=== PATIENT | male | born 1965 | race Caucasian/White ===

== ENCOUNTER → 2018-04-28 | Outpatient (CLI) | payer OTHER ==
[~2018-04-28] MED LIST: CEFTIN250 MG PO; CHROMIUM PICO200 MCG PO; COUMADIN 5MG5 MG/TAB PO; DIABETIC PO; GLUCOPHAGE; L-CARNITINE PO; LOVENOX 8080 MG/0.8 SQ; VICODIN 5/5001 UDTAB PO; VITAMIN E1000 IU PO; [UNRECOGNIZED DRUG - REMARK]
== END ==
LOC: BHSO 13:41
DX: F51.5 Nightmare disorder (principal)

== ENCOUNTER → 2018-05-06 | Outpatient (REF) | LOC: ZLAB.WCH 15:11 | DX: Z01.89 Encounter for other specified special examinations (principal) ==

== ENCOUNTER → 2018-05-18 | Outpatient (REF) | LOC: ZLAB.WCH 19:08 | DX: Z01.89 Encounter for other specified special examinations (principal) ==

== ENCOUNTER → 2018-05-20 | Outpatient (REF) | LOC: ZLAB.WCH 08:35 | DX: Z01.89 Encounter for other specified special examinations (principal) ==

== ENCOUNTER → 2018-05-24 | Outpatient (REF) | LOC: ZLAB.WCH 08:57 | DX: Z01.89 Encounter for other specified special examinations (principal) ==

== ENCOUNTER → 2018-05-25 | Outpatient (CLI) | payer OTHER | LOC: BHSO 09:50 | DX: F51.5 Nightmare disorder (principal) ==

== ENCOUNTER → 2018-06-08 | Outpatient (CLI) | payer OTHER | LOC: BHSO 09:48 | DX: F51.5 Nightmare disorder (principal) ==

== ENCOUNTER → 2018-06-15 | Outpatient (CLI) | payer OTHER | LOC: BHSO 09:56 | DX: F51.5 Nightmare disorder (principal) ==

== ENCOUNTER → 2018-06-22 | Outpatient (CLI) | payer OTHER | LOC: BHSO 10:01 | DX: F51.5 Nightmare disorder (principal) ==

== ENCOUNTER → 2018-06-29 | Outpatient (CLI) | payer OTHER | LOC: BHSO 09:53 | DX: F51.5 Nightmare disorder (principal) ==

== ENCOUNTER → 2018-07-09 | Outpatient (CLI) | payer OTHER | LOC: BHSO 12:05 | DX: F51.5 Nightmare disorder (principal) ==

== ENCOUNTER → 2018-07-13 | Outpatient (CLI) | payer OTHER | LOC: BHSO 09:51 | DX: F51.5 Nightmare disorder (principal) ==

== ENCOUNTER → 2018-07-20 | Outpatient (CLI) | payer OTHER | LOC: BHSO 08:55 | DX: F51.5 Nightmare disorder (principal) ==

== ENCOUNTER → 2018-07-27 | Outpatient (CLI) | payer OTHER | LOC: BHSO 10:00 | DX: F51.4 Sleep terrors [night terrors] (principal) ==

== ENCOUNTER → 2018-08-03 | Outpatient (CLI) | payer OTHER | LOC: BHSO 10:11 | DX: F51.5 Nightmare disorder (principal) ==

== ENCOUNTER → 2018-08-05 | Outpatient (REF) | LOC: ZLAB.WCH 16:17 | DX: Z01.89 Encounter for other specified special examinations (principal) ==

== ENCOUNTER → 2018-08-10 | Outpatient (CLI) | payer OTHER | LOC: BHSO 09:53 | DX: F63.81 Intermittent explosive disorder (principal) ==

== ENCOUNTER → 2018-08-17 | Outpatient (CLI) | payer OTHER | LOC: BHSO 09:57 | DX: F63.81 Intermittent explosive disorder (principal) ==

== ENCOUNTER → 2018-08-25 | Outpatient (CLI) | payer OTHER | LOC: COL.RAD 09:47 | DX: Z02.71 Encounter for disability determination (principal); I70.202 Unspecified atherosclerosis of native arteries of extremities, left leg; M47.816 Spondylosis without myelopathy or radiculopathy, lumbar region; I70.0 Atherosclerosis of aorta; I70.8 Atherosclerosis of other arteries ==

== ENCOUNTER → 2018-08-31 | Outpatient (CLI) | payer OTHER | LOC: BHSO 12:58 | DX: F63.81 Intermittent explosive disorder (principal) ==

== ENCOUNTER → 2018-09-07 | Outpatient (CLI) | payer OTHER | LOC: BHSO 09:50 | DX: F63.81 Intermittent explosive disorder (principal) ==

== ENCOUNTER → 2018-09-14 | Outpatient (CLI) | payer OTHER | LOC: BHSO 09:54 | DX: F63.81 Intermittent explosive disorder (principal) ==

== ENCOUNTER → 2018-09-21 | Outpatient (CLI) | payer OTHER | LOC: BHSO 09:57 | DX: F63.81 Intermittent explosive disorder (principal) ==

== ENCOUNTER → 2018-09-28 | Outpatient (CLI) | payer OTHER | LOC: BHSO 10:01 | DX: F63.81 Intermittent explosive disorder (principal) ==

== ENCOUNTER → 2018-10-06 | Outpatient (CLI) | payer OTHER | LOC: BHSO 15:20 | DX: F63.81 Intermittent explosive disorder (principal) ==

== ENCOUNTER → 2018-10-12 | Outpatient (CLI) | payer OTHER | LOC: BHSO 09:50 | DX: F63.81 Intermittent explosive disorder (principal) ==

== ENCOUNTER → 2018-10-19 | Outpatient (CLI) | payer OTHER | LOC: BHSO 09:56 | DX: F63.81 Intermittent explosive disorder (principal) ==

== ENCOUNTER → 2018-10-26 | Outpatient (CLI) | payer OTHER | LOC: BHSO 09:55 | DX: F63.81 Intermittent explosive disorder (principal) ==

== ENCOUNTER → 2018-11-02 | Outpatient (CLI) | payer OTHER | LOC: BHSO 09:57 | DX: F63.81 Intermittent explosive disorder (principal) ==

== ENCOUNTER → 2018-11-23 | Outpatient (CLI) | payer OTHER | LOC: BHSO 09:44 | DX: F63.81 Intermittent explosive disorder (principal) ==

== ENCOUNTER → 2018-11-30 | Outpatient (CLI) | payer OTHER | LOC: BHSO 10:53 | DX: F63.81 Intermittent explosive disorder (principal) ==

== ENCOUNTER → 2018-12-07 | Outpatient (CLI) | payer OTHER | LOC: BHSO 09:46 | DX: F63.81 Intermittent explosive disorder (principal) ==

== ENCOUNTER → 2018-12-21 | Outpatient (CLI) | payer OTHER | LOC: BHSO 10:17 | DX: F63.81 Intermittent explosive disorder (principal) ==

== ENCOUNTER → 2018-12-28 | Outpatient (CLI) | payer OTHER | LOC: BHSO 10:47 | DX: F63.81 Intermittent explosive disorder (principal) ==

== ENCOUNTER → 2019-01-04 | Outpatient (CLI) | payer OTHER | LOC: BHSO 10:46 | DX: F63.81 Intermittent explosive disorder (principal) ==

== ENCOUNTER → 2019-01-13 | Outpatient (CLI) | payer OTHER | LOC: BHSO 12:54 | DX: F63.81 Intermittent explosive disorder (principal) ==

== ENCOUNTER → 2019-01-18 | Outpatient (CLI) | payer OTHER | LOC: BHSO 10:55 | DX: F63.81 Intermittent explosive disorder (principal) ==

== ENCOUNTER → 2019-01-25 | Outpatient (CLI) | payer OTHER | LOC: BHSO 10:54 | DX: F63.81 Intermittent explosive disorder (principal) ==

== ENCOUNTER → 2019-02-01 | Outpatient (CLI) | payer OTHER | LOC: BHSO 10:55 | DX: F63.81 Intermittent explosive disorder (principal) ==

== ENCOUNTER → 2019-02-08 | Outpatient (CLI) | payer OTHER | LOC: BHSO 10:49 | DX: F63.81 Intermittent explosive disorder (principal) ==

== ENCOUNTER → 2019-02-15 | Outpatient (CLI) | payer OTHER | LOC: BHSO 10:55 | DX: F63.81 Intermittent explosive disorder (principal) ==

== ENCOUNTER → 2019-02-22 | Outpatient (CLI) | payer OTHER | LOC: BHSO 09:54 | DX: F63.81 Intermittent explosive disorder (principal) ==

== ENCOUNTER → 2019-03-01 | Outpatient (CLI) | payer OTHER | LOC: BHSO 10:50 | DX: F63.81 Intermittent explosive disorder (principal) ==

== ENCOUNTER → 2019-03-08 | Outpatient (CLI) | payer OTHER | LOC: BHSO 10:53 | DX: F63.81 Intermittent explosive disorder (principal) ==

== ENCOUNTER → 2019-03-16 | Outpatient (CLI) | payer OTHER | LOC: BHSO 10:56 | DX: F63.81 Intermittent explosive disorder (principal) ==

== ENCOUNTER → 2019-03-22 | Outpatient (CLI) | payer OTHER | LOC: BHSO 10:54 | DX: F63.81 Intermittent explosive disorder (principal) ==

== ENCOUNTER → 2019-03-29 | Outpatient (CLI) | payer OTHER | LOC: BHSO 11:01 | DX: F41.1 Generalized anxiety disorder (principal) ==

== ENCOUNTER → 2019-04-05 | Outpatient (CLI) | payer OTHER | LOC: BHSO 11:08 | DX: F63.81 Intermittent explosive disorder (principal) ==

== ENCOUNTER → 2019-04-12 | Outpatient (CLI) | payer OTHER | LOC: BHSO 10:55 | DX: F63.81 Intermittent explosive disorder (principal) ==

== ENCOUNTER → 2019-05-17 | Outpatient (CLI) | payer OTHER | LOC: BHSO 10:43 | DX: F63.81 Intermittent explosive disorder (principal) ==

== ENCOUNTER → 2019-05-24 | Outpatient (CLI) | payer OTHER | LOC: BHSO 10:55 | DX: F63.81 Intermittent explosive disorder (principal) ==

== ENCOUNTER → 2019-05-31 | Outpatient (CLI) | payer OTHER | LOC: BHSO 10:55 | DX: F63.81 Intermittent explosive disorder (principal) ==

== ENCOUNTER → 2019-06-07 | Outpatient (CLI) | payer OTHER | LOC: BHSO 11:01 | DX: F63.81 Intermittent explosive disorder (principal) ==

== ENCOUNTER → 2019-06-14 | Outpatient (CLI) | payer OTHER | LOC: BHSO 11:00 | DX: F63.81 Intermittent explosive disorder (principal) ==

== ENCOUNTER → 2019-06-21 | Outpatient (CLI) | payer OTHER | LOC: BHSO 10:58 | DX: F63.81 Intermittent explosive disorder (principal) ==

== ENCOUNTER → 2019-06-28 | Outpatient (CLI) | payer OTHER | LOC: BHSO 10:56 | DX: F63.81 Intermittent explosive disorder (principal) ==

== ENCOUNTER → 2019-07-05 | Outpatient (CLI) | payer OTHER | LOC: BHSO 10:57 | DX: F63.81 Intermittent explosive disorder (principal) ==

== ENCOUNTER → 2019-07-12 | Outpatient (CLI) | payer OTHER | LOC: BHSO 11:08 | DX: F63.81 Intermittent explosive disorder (principal) ==

== ENCOUNTER → 2019-08-16 | Outpatient (CLI) | payer OTHER ==
[~2019-08-16] MED LIST changes: +BACTRIM DS 8001 TAB PO; +DEMADEX 20MG20 M1 PO; +GLUCOPHAGE1000 MG PO; +LANTUS100 U/ML SQ; +NORCO 325 MG-101 TAB PO; +NOVOLOGMIX70/30 SQ; +OMNICEF 300MG300 MG PO; +ZESTRIL40 MG PO
== END ==
LOC: BHSO 10:32
DX: F63.81 Intermittent explosive disorder (principal)

== ENCOUNTER → 2019-08-23 | Outpatient (CLI) | payer OTHER | LOC: BHSO 10:54 | DX: F63.81 Intermittent explosive disorder (principal) ==

== ENCOUNTER → 2019-08-30 | Outpatient (CLI) | payer OTHER ==
[~2019-08-30] MED LIST changes: +NOVOLOG 100U100 U/M1 SQ
== END ==
LOC: BHSO 10:37
DX: F63.81 Intermittent explosive disorder (principal)

== ENCOUNTER → 2019-09-06 | Outpatient (CLI) | payer OTHER | LOC: BHSO 10:55 | DX: F63.81 Intermittent explosive disorder (principal) ==

== ENCOUNTER → 2019-09-13 | Outpatient (CLI) | payer OTHER | LOC: BHSO 10:54 | DX: F63.81 Intermittent explosive disorder (principal) ==

== ENCOUNTER → 2019-09-20 | Outpatient (CLI) | payer OTHER | LOC: BHSO 10:57 | DX: F63.81 Intermittent explosive disorder (principal) ==

== ENCOUNTER 2019-09-22 13:37 | Inpatient (IN) | payer OTHER ==
[~2019-09-22] VITALS: Ht 172.7 cm; Wt 128.8 kg
[~2019-09-22 13:37] MED LIST changes: -BACTRIM DS 8001 TAB PO; -DEMADEX 20MG20 M1 PO; -GLUCOPHAGE1000 MG PO; -LANTUS100 U/ML SQ; -NORCO 325 MG-101 TAB PO; -NOVOLOG 100U100 U/M1 SQ; -NOVOLOGMIX70/30 SQ; -OMNICEF 300MG300 MG PO; -ZESTRIL40 MG PO
[2019-09-22 16:26] LABS: HEMATOCRIT 50.6 % (42.0-52.0); HEMOGLOBIN 16.4 g/dl (13.5-18.0); MEAN CELL VOLUME 93 fl (80.0-100.0); MEAN CORPUSCULAR HEMOGLOBIN 30 pg (27.0-31.0); MEAN CORPUSCULAR HGB CONC 32 g/dl (33.0-37.0); MEAN PLATELET VOLUME 11.7 fl (7.4-10.4); PLATELET COUNT 241 K/mm3 (130-400); RED BLOOD COUNT 5.44 M/mm3 (4.20-5.60); REDCELL DISTRIBUTION WIDTH-CV 15.9 % (11.5-14.5)
[2019-09-22 16:47] LABS: ALBUMIN 4.1 gm/dL (3.5-5.0); BILIRUBIN,TOTAL 0.5 mg/dL (0.0-1.0); CALCIUM 9.9 mg/dL (8.4-10.2); CREATININE, serum 3.96 (0.66-1.25); POTASSIUM 3.4 mmol/L (3.4-5.0); TOTAL PROTEIN 7.6 gm/dL (6.4-8.2)
[2019-09-22 16:54] LABS: BAND 3 % (0-10); EOSINOPHIL 1 % (0-4); LYMPHOCYTE 8 % (20.0-51.0); METAMYELOCYTE 1 % (0-0); MYELOCYTE 2 % (0-0); NEUTROPHILS 73 % (42.0-75.2)
[2019-09-22 16:55] LABS: ANISOCYTOSIS 1+; PLATELET ESTIMATE NORMAL (NORMAL)
[2019-09-22] MEDS ORDERED: GLUCOPHAGE1000 MG PO (17:06)
[2019-09-22 17:07] LABS: C-REACTIVE PROTEIN 18.5 mg/dL (0.0-0.9)
[2019-09-22 17:08] LABS: INR 1.2 (0.8-3.0); PROTHROMBIN TIME 12.9 SECONDS (9.7-12.8)
[2019-09-22] MEDS ORDERED: DEMADEX 20MG20 M1 PO (17:13)
[2019-09-22 17:14] VITALS: BP 105/53; PULSE 92; TEMP 99.8
[2019-09-22] MEDS ORDERED: ZESTRIL40 MG PO (17:14)
[2019-09-22] MEDS ORDERED: NOVOLOGMIX70/30 SQ (17:19)
[2019-09-22] MEDS ORDERED: LEVEMIR100 U/ML SQ (17:21)
--- NOTE | 2019-09-22 17:21 | NUR ---
Vancomycin Initial Dosing Pharmacy Note Ordering provider: Atif Ayers MD Indication/duration: Sepsis Relevant comorbidities: LABS: Crea= 3.96, est Crcl of 20 mL/min Recommendation: Load of 2 g, then 1.75 g IV daily, follow daily labs, trough on 09/25/19 @1700. Loading dose: 2 grams Maintenance dose: 1.75 grams every 24 hours Trough goal: 15-20 ug/mL
[2019-09-22] MEDS ORDERED: OMNICEF 300MG300 MG PO (17:22)
[2019-09-22] MEDS ORDERED: BACTRIM DS 8001 TAB PO (17:22)
[2019-09-22] MEDS ORDERED: NORCO 325 MG-101 TAB PO (17:24)
[2019-09-22 19:20] VITALS: BP 103/46; PULSE 94; TEMP 99.5
--- NOTE | 2019-09-22 19:44 | NUR ---
Pt to the floor this afternoon, initial assessments complete, wound swab obtained and sent to lab from [facility], currently wound open to air, IV access obtained in LAC.
--- NOTE | 2019-09-22 20:33 | NUR ---
Assessment complete. Lungs clear. Heart sounds normal. Bowels active. Pulses present throughout. Weak in lower extremities. No edema noted. Right great toe black in color with odor. Painful to touch. IV left AC without complication. Fluid bolus infusing. Reports pain in right foot. Provided with PRN norco. Denies other needs. Call light in reach.
--- NOTE | 2019-09-22 21:45 | NUR ---
Resting in bed. Denies needs. Call light in reach.
[2019-09-22 23:46] VITALS: BP 107/45; PULSE 86; TEMP 98
--- NOTE | 2019-09-22 23:56 | NUR ---
Reports uncontrolled pain in right great toe. Spoke with Dr. Naik, verbal order for morphine 2mg Q4H PRN. Provided to patient. Denies other needs at this time. Will monitor.
[2019-09-23] VITALS (9 sets, daily range): BP systolic 94–125; BP diastolic 49–78; PULSE 79–91; TEMP 98.1–99.3
--- NOTE | 2019-09-23 01:34 | NUR ---
Patient up ambulating in room. Reports discomfort and would like to go smoke. Reeducated patient regarding no smoking policy. Provided patient with recliner in room. Morphine not due at this time. Reports shooting pains in toe. Recomended elevation. Will continue to monitor and provide pain medication at appropriate time.
--- NOTE | 2019-09-23 02:19 | NUR ---
Asleep in recliner. Call light in reach. Will monitor.
--- NOTE | 2019-09-23 04:43 | NUR ---
Patient asleep in recliner at this time. Will reassess pain when awake. Call light in reach.
--- NOTE | 2019-09-23 05:27 | NUR ---
reports 8/10 right foot pain. Provided with ESTELLE fitch at this time. Denies other needs. Call light in reach.
--- NOTE | 2019-09-23 06:40 | NUR ---
Patient required x1 dose of morphine and x2 doses of norco for pain control throughout the night. Otherwise uneventful night. Resting in bed this AM. Call light in reach.
--- NOTE | 2019-09-23 07:00 | NUR ---
Report received from JASMIN Espinal. pT in bed resting, per rn night pt refuses to let us place items in safe that are not supposed to be left in room, i.e. masseur/masseuse, cigarettes and CBD oil. Notified overnight houseperson of this information and they will follow up.
[2019-09-23 07:11] LABS: HEMOGLOBIN 15.8 g/dl (13.5-18.0); MEAN CELL VOLUME 94 fl (80.0-100.0); MEAN CORPUSCULAR HEMOGLOBIN 30 pg (27.0-31.0); MEAN CORPUSCULAR HGB CONC 32 g/dl (33.0-37.0); MEAN PLATELET VOLUME 11.5 fl (7.4-10.4); PLATELET COUNT 223 K/mm3 (130-400); RED BLOOD COUNT 5.21 M/mm3 (4.20-5.60); REDCELL DISTRIBUTION WIDTH-CV 15.5 % (11.5-14.5)
[2019-09-23 07:31] LABS: CALCIUM 8.7 mg/dL (8.4-10.2); CREATININE, serum 2.55 (0.66-1.25); MAGNESIUM 2.1 mg/dL (1.6-2.3); POTASSIUM 3.7 mmol/L (3.4-5.0)
--- NOTE | 2019-09-23 07:31 | NUR ---
Report given to JASMIN Brenner
[2019-09-23 07:36] LABS: INR 1.1 (0.8-3.0); PROTHROMBIN TIME 12.4 SECONDS (9.7-12.8)
[2019-09-23 08:22] LABS: BAND 9 % (0-10); LYMPHOCYTE 14 % (20.0-51.0); METAMYELOCYTE 1 % (0-0); NEUTROPHILS 61 % (42.0-75.2)
[2019-09-23 08:23] LABS: ANISOCYTOSIS 1+; PLATELET ESTIMATE NORMAL (NORMAL)
--- NOTE | 2019-09-23 09:00 | NUR ---
Assessment charted. Pt in [facility] PICC placed at this time. Resting in bed for placement. R toe wrapped in dressing. ORtho called to notify of plan to amputate toe todya. Pt had MRI this am. PRN pain meds given, will continue to monitor.
--- NOTE | 2019-09-23 10:33 | NUR ---
Notified hospitalist of pt refusal to remove items from room, discussed with pt and he continues to refuse.
[2019-09-23 11:57] LABS: PH 7 (5-8); SQUAMOUS EPITHELIAL None Seen /hpf; URINE APPEARANCE Clear; URINE BACTERIA None Seen /hpf; URINE BILIRUBIN Negative (NEGATIVE); URINE BLOOD Negative (NEGATIVE); URINE COLOR Straw; URINE GLUCOSE Negative (NEGATIVE); URINE KETONE Negative (NEGATIVE); URINE LEUKOCYTE ESTERASE Negative (NEGATIVE); URINE NITRATE Negative (NEGATIVE); URINE PROTEIN(semi-quant) Negative (NEGATIVE); URINE RBC None Seen /hpf; URINE UROBILINOGEN Negative (NEGATIVE)
[2019-09-23 12:45] LABS: COLLECTION METHOD CLEAN CATCH
--- NOTE | 2019-09-23 14:45 | NUR ---
OR transport called to notify of "coming ot picking tech pt". I explained that there are no orders for surgery, provided fluids via gravity for OR and pt transported with OR staff. Will continue to monitor.
--- NOTE | 2019-09-23 15:29 | NUR ---
Glove Maker met with patient to discuss discharge planning. Patient lives alone in [place], [place] and sees Dr. Dean for primary care. [facility] and does not use any D[facility]. Patient reports independence with ADLS. Patient does not have Advance Directives and is not interested in designating DPOA-HC. Patient firmly states he does not want to list an emergency contact and will not identify next of kin. Patient plans to return home upon discharge. No additional needs at this time.
--- NOTE | 2019-09-23 16:30 | NUR ---
Pt arrived back to room at this time with OR staff. In bed, 02 low so placed on 2L NC of oxygen. R great toe site wrapped with large occlusive dressing that is CDI. VSS. Will continue to monitor.
--- NOTE | 2019-09-23 18:12 | NUR ---
Pt up on commode right now, difficulty voiding post op. VSS. doing well, will give bedside shift report to nightshift nurse who will resume care.
--- NOTE | 2019-09-23 21:30 | NUR ---
Initial shift assessment done- states pain to right foot 12/18- will give Morphine and Roxicodone as ordered- rightfoot up on 2 pillows- large dressing intact covered in coleen wrap- can see tips of a couple toes- states has feeling warm, SCD to left leg on. Encouraged to C&DB, Using IS
--- NOTE | 2019-09-23 22:50 | NUR ---
Patient states is in severe pain right foot- stabbing pain, moaning in the bed- Jasmin LEGGETT called- pain med changed to dIlaudid 0.5mg every 2 hrs IV-- dose given now,,
[2019-09-24] VITALS (8 sets, daily range): BP systolic 128–153; BP diastolic 67–82; PULSE 86–97; TEMP 99–101.2
--- NOTE | 2019-09-24 00:20 | NUR ---
Temp 101.2-- assisted pt with IS-- did do 10 times- up to 500ml,, also cough and deep breathing done.
--- NOTE | 2019-09-24 00:30 | NUR ---
Temp down to 99.5- pt states pain to right foot now at 8/10- [place] given and will give Dilaudid when due in 15 minutes-
--- NOTE | 2019-09-24 04:44 | NUR ---
Is getting Dilaudid 0.5mg IV every 2 hours and also alternating Oxycodone and [place] for pain relief- right foot up on 2 pillow- dressing remains dry and intact, voiding well, is sitting at edge of bed to void- wants his right heel messaged- states that is what helps the pain most,,at times says it is like a knife "stabbing his ankle"
--- NOTE | 2019-09-24 06:05 | NUR ---
Pt states pain in right foot at 02/17-moaning- restless, just given Dilaudid 1 hour ago- Jasmin LEGGETT called- order for extra dose of Dilaudid- given at this time
[2019-09-24 07:04] LABS: HEMATOCRIT 47.8 % (42.0-52.0); HEMOGLOBIN 15.3 g/dl (13.5-18.0); MEAN CELL VOLUME 94 fl (80.0-100.0); MEAN CORPUSCULAR HEMOGLOBIN 30 pg (27.0-31.0); MEAN CORPUSCULAR HGB CONC 32 g/dl (33.0-37.0); MEAN PLATELET VOLUME 11.5 fl (7.4-10.4); PLATELET COUNT 238 K/mm3 (130-400); RED BLOOD COUNT 5.09 M/mm3 (4.20-5.60); REDCELL DISTRIBUTION WIDTH-CV 15.3 % (11.5-14.5)
[2019-09-24 07:19] LABS: CALCIUM 8.9 mg/dL (8.4-10.2); CREATININE, serum 1.5 (0.66-1.25); POTASSIUM 3.9 mmol/L (3.4-5.0)
[2019-09-24 07:20] LABS: INR 1.1 (0.8-3.0); PROTHROMBIN TIME 12.8 SECONDS (9.7-12.8)
[2019-09-24 10:56] LABS: BAND 4 % (0-10); LYMPHOCYTE 7 % (20.0-51.0); NEUTROPHILS 76 % (42.0-75.2)
[2019-09-24 10:57] LABS: PLATELET ESTIMATE NORMAL (NORMAL)
--- NOTE | 2019-09-24 11:42 | NUR ---
Patient is alert and oriented. complain of pain 9/10 on his right leg. Temp ranging from 100.2-100.[address] Drew informed of his temp.
--- NOTE | 2019-09-24 17:48 | NUR ---
Patient is on Oxycodone, Tramadol and dilaudid for pain. pain requested for pain medication constantly for his new right toe. patient complain of pain in his left knee. Dr Drew informed of this new pain.
--- NOTE | 2019-09-24 18:45 | NUR ---
Pt REPORT RECEIVED FROM NANCY CASTELLANOS AT PT BEDSIDE. Pt IS A&OX4 AND IS PEACEFULLY WATCHING TV. PT STATES THAT HE HAS HAD CONSTANT PAIN EVEN WITH PAIN MEDICATION ADMINISTED. CALL LIGHT IS AT Pt SIDE. WILL CONTINUE TO MONITOR.
[2019-09-25] VITALS (7 sets, daily range): BP systolic 129–153; BP diastolic 59–82; PULSE 61–96; TEMP 98.9–100.5
--- NOTE | 2019-09-25 01:33 | NUR ---
Pt has spent the shift resting in bed. Pt has had persistent pain this shift with a consistent pain range of 9-10/10 prior to pain medical staff manager and 7-9/10 after pain medication administered. Pt is able to bring hiimself to a sitting position on the side of the bed to use the male urinal with dark audrey urine noted. Pt is A&Ox4 and is easily able to make his wants/needs known. Pt is compliant with call light, cooperative with care, and compliant with medication regimen. Pt has had increasing complaints of pain at his left knee that radiates to his left ankle and foot and is noted to cry out in pain when this insurance underwriter sales manipulates his right foot and L.E to remove his sock to assess his foot and toes. Pt is noted to have a dark dusky discoloration noted to his L.L.E from his hope to his ankle/foot with warmth also noted- it is also noted that the Pt skin temp is generally noted as warm but there is a warmer sensation to his RLE. Pt has IV fluids infusing without complications through his PICC line located at his R.U.E and the purple port flushes easily. This insurance underwriter sales will have Tessy CASTELLANOS who cared for Pt last night assess the LLE for comparision however Tessy CASTELLANOS states that Pt had no c/o pain or issues with his left leg last night. Will continue to monitor.
--- NOTE | 2019-09-25 05:54 | NUR ---
Pt has been asleep since last PRN dose of morphine, resting peacefully in bed with minimal to no pain noted on visage while resting with eyes closed and a regular respiratory rate and rhythym noted. Pt had persistent pain throughout the shift and was unable to rest peacefully with Pt pain addressed through his PRN pain meds which were finally effective as evidenced by Pt being able to fall asleep. Pt has been compliant with the call light, care provided, and his medication regimen. Pt IV fluids have been infusing without complications nor adverse antibiotic reactions noted. Pt has remained in stable condition with no s/s of distress noted with the only noted change in his condition being that he now reports pain to his right L.E from his knee to his toes with pain noted with any movement or pressure. This essentially makes pt bedfast at this time due to the non weight bearing status on his right L.E post surgery and now the inability to use his left L.E due to pain. Call light remains within reach. Will continue to monitor.
--- NOTE | 2019-09-25 07:02 | NUR ---
Pt REPORT GIVEN TO MARIAMA RN AT BEDSIDE.
[2019-09-25 07:56] LABS: INR 1.4 (0.8-3.0); PROTHROMBIN TIME 15.2 SECONDS (9.7-12.8)
[2019-09-25 07:59] LABS: HEMATOCRIT 45.5 % (42.0-52.0); HEMOGLOBIN 14.7 g/dl (13.5-18.0); MEAN CELL VOLUME 93 fl (80.0-100.0); MEAN CORPUSCULAR HEMOGLOBIN 30 pg (27.0-31.0); MEAN CORPUSCULAR HGB CONC 32 g/dl (33.0-37.0); MEAN PLATELET VOLUME 11.6 fl (7.4-10.4); PLATELET COUNT 226 K/mm3 (130-400); REDCELL DISTRIBUTION WIDTH-CV 14.8 % (11.5-14.5)
--- NOTE | 2019-09-25 08:00 | NUR ---
Assessment complete. Patient A&Ox4, reporting pain in legs and requesting pain medication. PICC ARTHUR CDI, fluids infusing. VSS. 2L NC O2. No reported SOB.Right lower leg/foot elevated pillow. CDI, Wrapped in coleen bandage. Left lower leg/foot red, pain with palpation and warm. Doctor notified. Patient instructed not to get up and put weight on legs, but patient refusing and wanting to sit on the edge of bed to void with the assistance of the nurse. No further needs expressed from patient. Call light within reach.
[2019-09-25 08:11] LABS: CALCIUM 8.9 mg/dL (8.4-10.2); CREATININE, serum 1.13 (0.66-1.25)
[2019-09-25 09:49] LABS: BAND 7 % (0-10); LYMPHOCYTE 15 % (20.0-51.0); NEUTROPHILS 70 % (42.0-75.2); PLATELET ESTIMATE NORMAL (NORMAL)
--- NOTE | 2019-09-25 10:45 | NUR ---
Patient pending Covid 19 test and transfered to room 305 by 2xnurses. Clean sheet placed on patient and mask. Covid isolation precautions in place. Patient educated on the transfer, test and precautions. No further needs expressed from patient. Call light within reach
--- NOTE | 2019-09-25 10:49 | NUR ---
Vancomycin Follow-up Pharmacy Note Current regimen: vancomycin 1.75 g q24h Vancomycin trough: not yet received but SCr improved from 3.9 to 1.1 Adjustments: increase frequency to q12h. new trough 09/25 @ 1030.
[2019-09-25 11:16] LABS: PARTIAL THROMBOPLASTIN TIME 35.7 SECONDS (26.0-37.0)
--- NOTE | 2019-09-25 19:22 | NUR ---
Patient has been resting in bed and has been trying to have a BM with no luck. Has been voiding in urinal on the edge of bed. VSS. 2L NC O2, patient has been taking off intermittently. IV CDI, fluids infusing. Patient on Covid precautions. Right leg coleen wrap, CMS WNL. Left leg dusky and patient reporting pain with palpation and movement. Patient on free water restriction and gatorade in room with patient. No further needs expressed from patient. Call light within reach
--- NOTE | 2019-09-25 20:00 | NUR ---
Report received from JASMIN Esparza. Alert and oriented. C/O pain to LT foot and to LT hand, swelling to knuckles, able to move fingers, cap refill <3sec, pulse palpable, warm pack provided as requested, pain rate 9/10. LT leg edema 2-3+, dusky, increased pain with movement, able to wiggle toes, cap refill <3sec, rate pain 8/10. PRN pain meds administered as requested by pt. 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 PICC to ARTHUR intact with IV meds infusing, dressing CDI. Meds administered as ordered. Needs met at this time. Call light within reach. contact/droplet precautions in place.
--- NOTE | 2019-09-26 02:00 | NUR ---
HepXa result 0.12. per protocol, increase heparin rate 2.5. Currently infusing at 25.5ml/hr. New rate changed to 28ml/hr. Bolus 1,000u heparin per protocol administered. Rate change confirmed with JASMIN Marquis. Next HepXa in 6 hours, orders placed.
[2019-09-26 04:00] VITALS: PULSE 94; TEMP 98.6
--- NOTE | 2019-09-26 04:04 | NUR ---
Pt refusing to have BP checked, states BP cuff hurts arm. States pain to Lt arm down to wrist and hands, able to slowly move fingers, bend arm at elbow, cap refill >3, pulse palpable, pt unable to bend at wrist. Groans in pain with minimal movement, pain rate 9-10/10. PRN pain meds adminsitered multiple times as requested by pt and according to orders. Will monitor pt. Call light within reach.
--- NOTE | 2019-09-26 05:48 | NUR ---
Pt continues to moan in pain to left arm, able to raise arm up and down at a slow pace, ice pack provided and elevated on pillow, prn pain med administered. Rate pain 9/10. Pt able to sit self on side of bed to use urinal. Urinal emptied and charted. Nicotine gum provided to pt as requested. Call light within reach.
--- NOTE | 2019-09-26 06:58 | NUR ---
Report given to JASMIN Regalado.
--- NOTE | 2019-09-26 07:00 | NUR ---
Rcvd patient from JASMIN Cage this AM. Roomside shift report done, looked into pt room, pt is sleeping, Heparin is running at 28, and has approximately 1-2 hours left in bag. Will check in on patient for morning rounds.
[2019-09-26 07:19] LABS: HEMATOCRIT 42.6 % (42.0-52.0); HEMOGLOBIN 13.6 g/dl (13.5-18.0); MEAN CELL VOLUME 93 fl (80.0-100.0); MEAN CORPUSCULAR HEMOGLOBIN 30 pg (27.0-31.0); MEAN CORPUSCULAR HGB CONC 32 g/dl (33.0-37.0); MEAN PLATELET VOLUME 11.6 fl (7.4-10.4); PLATELET COUNT 247 K/mm3 (130-400); RED BLOOD COUNT 4.57 M/mm3 (4.20-5.60); REDCELL DISTRIBUTION WIDTH-CV 14.7 % (11.5-14.5)
[2019-09-26 07:29] LABS: ALBUMIN 3.4 gm/dL (3.5-5.0); BILIRUBIN,TOTAL 0.5 mg/dL (0.0-1.0); CALCIUM 7.8 mg/dL (8.4-10.2); CREATININE, serum 1.09 (0.66-1.25); POTASSIUM 3.6 mmol/L (3.4-5.0)
[2019-09-26 07:36] LABS: INR 1.5 (0.8-3.0); PROTHROMBIN TIME 17.2 SECONDS (9.7-12.8)
[2019-09-26 08:00] VITALS: BP 138/76; PULSE 83; TEMP 98.8
--- NOTE | 2019-09-26 08:00 | NUR ---
Pt called and is very upset. He states "I called at 0500 and told the nurse that I spilled urine everywhere and needed her to come in!" This RN asked if the pt needed any pain medication or needed anything else. Pt responded very rudely. Will go into pt room for Insulin admin, pain medication admin as well as assessment.
[2019-09-26 08:27] LABS: BAND 11 % (0-10); LYMPHOCYTE 12 % (20.0-51.0); NEUTROPHILS 66 % (42.0-75.2); PLATELET ESTIMATE NORMAL (NORMAL)
--- NOTE | 2019-09-26 09:30 | NUR ---
The pt is very angry, he inappropriately yelled at this RN regarding how his care at this hospital has not been satisfactory. This RN informed him that he was not allowed to speak to anyone the way he has been, that we are here to take care of him the best we can. That it doesn't always mean that as soon as he calls that we can make it into his room, but that we are doing the best we can to get to him quickly. Education provided on precautions and the amount of time it can take to don the appropriate PPE to come into his room. This RN has been clustering care to preserve PPE. Pt used inappropriate contact with pt that made this RN uncomfortable. During assistance with Urinal at bedside pt states "Can I put my hand on your head". This RN informed him that it was not ok for him to say that, and that I would be talking to my superiors regarding the statement.
[2019-09-26 11:17] VITALS: BP 142/76; PULSE 93; TEMP 99.4
[2019-09-26 13:20] LABS: COLLECTION METHOD IN
[2019-09-26 13:24] LABS: MUCOUS Present /lpf; PH 6 (5-8); SQUAMOUS EPITHELIAL None Seen /hpf; URINE APPEARANCE Clear; URINE BACTERIA None Seen /hpf; URINE BILIRUBIN Negative (NEGATIVE); URINE BLOOD 1+ (NEGATIVE); URINE COLOR Yellow; URINE GLUCOSE 3+ (NEGATIVE); URINE KETONE Negative (NEGATIVE); URINE LEUKOCYTE ESTERASE Negative (NEGATIVE); URINE NITRATE Negative (NEGATIVE); URINE PROTEIN(semi-quant) 1+ (NEGATIVE); URINE RBC 0-2 /hpf; URINE UROBILINOGEN Negative (NEGATIVE)
--- NOTE | 2019-09-26 15:51 | NUR ---
Product Management Manager spoke with RNSabine who advised patient's mother, Roshni Mae called her today. Sabine reports the call was transferred to her and Roshni did not leave a call back number. SW to continue to follow.
--- NOTE | 2019-09-26 20:51 | NUR ---
Pt became less angry throughout the day. Pt pain was managed with medications, however pt continued to state that he was in massive pain. Physician was talked to, but pt was told there is nothing else we can give him. Pt mother has been in contact, and has been inappropriate in conversations. This RN had to attempt to calm her down. The remainder of the shift the pt was pleasant. Report given to JASMIN Haile.
--- NOTE | 2019-09-26 21:00 | NUR ---
Report received from Lazara CASTELLANOS. Assessment complete. Lungs dimished. Heart sounds normal. Bowels active. Pulses present in left lower extremity. Bilateral lower edema +2. Right lower extremity/foot wrapped in dressing. Dressing CDI. PICC right upper without complications. Heparin gtt infusing at 30 ml/hr. Recently received oxycodone. Denies needs. Call light in reach.
--- NOTE | 2019-09-26 23:00 | NUR ---
Spoke with house supervisior. Heparin hard limit on pump 30ml/hr. Patient heparin results 0.02. Per previous nurse-Dr. Ayers aware and okay to leave at 30ml/hr. Will recheck in 6 hours.
--- NOTE | 2019-09-27 | NUR ---
Provided with PRN dilaudid for 7/10 leg and arm pain. Denies other needs. Call light in reach.
[2019-09-27 00:15] VITALS: BP 155/95; PULSE 89; TEMP 98.7
--- NOTE | 2019-09-27 00:41 | NUR ---
Spoke with Angelita from [facility] regarding heparin dosing per protocol. Per Angelita increase by 1.5 and recheck at 0230 and adjust accordingly. Heparin dose change verified by JASMIN Wasserman
--- NOTE | 2019-09-27 02:54 | NUR ---
Patient hep xa 0.24. Spoke with Angelita from [facility]. By heparin protocol increase by 1.5. Verified with [facility]. Okay to increase. Verified by JASMIN Wasesrman
[2019-09-27 04:37] VITALS: BP 155/84; PULSE 84; TEMP 98.2
--- NOTE | 2019-09-27 06:27 | NUR ---
Patient required x1 dose of oxycodone and x1 dilaudid during night for pain control. Dressing CDI. Denies needs this Am. Call light in reach. Will monitor.
[2019-09-27 07:20] VITALS: BP 151/96; PULSE 84; TEMP 98.6
--- NOTE | 2019-09-27 07:45 | NUR ---
Report given to JASMIN Ray
[2019-09-27 09:00] LABS: HEMATOCRIT 44.2 % (42.0-52.0); HEMOGLOBIN 14.2 g/dl (13.5-18.0); MEAN CELL VOLUME 93 fl (80.0-100.0); MEAN CORPUSCULAR HEMOGLOBIN 30 pg (27.0-31.0); MEAN CORPUSCULAR HGB CONC 32 g/dl (33.0-37.0); PLATELET COUNT 283 K/mm3 (130-400); RED BLOOD COUNT 4.77 M/mm3 (4.20-5.60); REDCELL DISTRIBUTION WIDTH-CV 14.7 % (11.5-14.5)
[2019-09-27 09:07] LABS: INR 1.8 (0.8-3.0); PROTHROMBIN TIME 20.2 SECONDS (9.7-12.8)
[2019-09-27 09:12] LABS: CALCIUM 8.6 mg/dL (8.4-10.2); CREATININE, serum 1.18 (0.66-1.25); MAGNESIUM 2.4 mg/dL (1.6-2.3); POTASSIUM 4.5 mmol/L (3.4-5.0)
--- NOTE | 2019-09-27 09:17 | NUR ---
Patient is alert . pain at 7/10. wheezing on all lung field at expiratory. heart sound is normal.
--- NOTE | 2019-09-27 09:36 | NUR ---
Behavioral Interventionist attended clinical rounds with the team. Hospitalist advised patient will continue on antibiotics. Patient complained of hand/wrist pain. SW to continue to follow.
[2019-09-27 17:23] VITALS: BP 142/109; PULSE 84; TEMP 98.6
[2019-09-27 19:07] VITALS: BP 137/78; PULSE 86; TEMP 98.4
--- NOTE | 2019-09-27 19:44 | NUR ---
patient had an mri of his leg today and duplex ultrasound of his right hand because of the swelling, redness and pain- result came back No DVT. evening Blood sugar is 432. 17units of insulin administered. Night nurse was informed about a recheck at 1930.
--- NOTE | 2019-09-27 20:10 | NUR ---
heparin drip is running at 36.5mL/HR. HEPXa is 0.11. next recheck is at 2030
--- NOTE | 2019-09-27 20:14 | NUR ---
Resting in bed. Assessment complete. Lungs clear. Heart sounds normal. Bowels active x4. Pulses present. Bilateral lower leg edema +1 with left lower extremity discoloration. Right foot/ankle dressing CDI. Left wrist/hand erythema present- lidocaine patch removed. PICC to right upper without complications. Heparin infusing at 36.5ml/hr. Patient rates pain 5/10 provided with PRN oxycodone. Patient FSBG 467. Ordered venous glucose and will obtain reading. Will notify hospitalist. Call light in reach. Will monitor.
--- NOTE | 2019-09-27 20:35 | NUR ---
Spoke with Jasmin HEART, give IV insulin. House supervisior contacted and will verify administration.
[2019-09-27 20:39] LABS: CALCIUM 8.5 mg/dL (8.4-10.2); CREATININE, serum 1.24 (0.66-1.25); POTASSIUM 4.9 mmol/L (3.4-5.0)
[2019-09-27 23:26] VITALS: BP 146/90; PULSE 85; TEMP 99
--- NOTE | 2019-09-28 02:37 | NUR ---
Reports 8/10 left hand/wrist pain. Provided with PRN oxycodone. Denies other needs. Call light in reach.
--- NOTE | 2019-09-28 03:13 | NUR ---
Patient blood sugars continue to be elevated around 350s. Per Jasmin change novolog to Q4H. Will update MAR
[2019-09-28 04:55] VITALS: BP 142/97; PULSE 93; TEMP 98.8
--- NOTE | 2019-09-28 07:27 | NUR ---
Patient required x2 doses of oxycodone and x1 dose of norco for pain control. Heparin gtt infusing per protocol. Otherwuse uneventful night. Patient resting in bed this AM. Report given to JASMIN Spear
[2019-09-28 07:43] VITALS: BP 157/99; PULSE 84; TEMP 98.8
--- NOTE | 2019-09-28 07:46 | NUR ---
Lying in bed with eyes open. Rates pain to left hand 5/10, describes as burning. Dressing to right foot CDI. Patient voices no further needs at this time.
[2019-09-28 09:15] LABS: HEMATOCRIT 46.9 % (42.0-52.0); HEMOGLOBIN 15.1 g/dl (13.5-18.0); MEAN CELL VOLUME 93 fl (80.0-100.0); MEAN CORPUSCULAR HEMOGLOBIN 30 pg (27.0-31.0); MEAN CORPUSCULAR HGB CONC 32 g/dl (33.0-37.0); MEAN PLATELET VOLUME 11.2 fl (7.4-10.4); PLATELET COUNT 290 K/mm3 (130-400); RED BLOOD COUNT 5.05 M/mm3 (4.20-5.60); REDCELL DISTRIBUTION WIDTH-CV 14.6 % (11.5-14.5)
[2019-09-28 09:21] LABS: ALBUMIN 3.7 gm/dL (3.5-5.0); BILIRUBIN,TOTAL 0.4 mg/dL (0.0-1.0); CALCIUM 9.1 mg/dL (8.4-10.2); CREATININE, serum 1.12 (0.66-1.25); POTASSIUM 4.1 mmol/L (3.4-5.0); TOTAL PROTEIN 7.6 gm/dL (6.4-8.2)
[2019-09-28 09:25] LABS: INR 2.5 (0.8-3.0); PROTHROMBIN TIME 27.8 SECONDS (9.7-12.8)
--- NOTE | 2019-09-28 10:36 | NUR ---
Dr. Drew notified of elevated BS. Orders received and given. Heparin drip stopped per orders. Patient rating pain 5/10 at this time. Denies need for pain medication.
[2019-09-28 11:43] VITALS: BP 152/94; PULSE 83; TEMP 98
--- NOTE | 2019-09-28 13:25 | NUR ---
Neon Sign Erector attended clinical rounds with the team. Patient continues to complain of hand pain. SW to continue to follow for discharge needs.
--- NOTE | 2019-09-28 15:40 | NUR ---
Dr. Sanchez in room to see patient and he performs dressing change to right foot. Patient informs Dr. Sanchez that when he stood earlier discharge came out of the left toenail. Dr. Sanchez evaluates and recommends to continue to monitor it at this time. Patient requests to take a nap at this time. Denies additional needs.
[2019-09-28 16:07] VITALS: BP 150/80; PULSE 79; TEMP 98.2
--- NOTE | 2019-09-28 16:12 | NUR ---
Patient blood sugar 406. KAYLEN Méndez, updated. She will look at meds and make adjustments at this time.
[2019-09-28] MEDS ORDERED: NOVOLOG 100U100 U/M1 SQ (16:26)
--- NOTE | 2019-09-28 16:47 | NUR ---
Administered Novolog 10units IV as prescribed. Patient in bed watching TV at this time. Denies further needs.
--- NOTE | 2019-09-28 17:24 | NUR ---
Rating pain in right foot 6/10, describes as burning. Patient requests pain medication. Administered [place] as prescribed.
--- NOTE | 2019-09-28 18:02 | NUR ---
Lying in bed with eyes closed. Respirations even and unlabored. No signs or symptoms of discomfort at this time.
--- NOTE | 2019-09-28 18:34 | NUR ---
Sitting up in bed getting ready to eat dinner. Continues to have some pain in right lower extremity. Encouraged patient to give medicine a little bit longer to see if it works some more. Patient denies further needs at this time.
[2019-09-28 20:05] VITALS: BP 146/84; PULSE 88; TEMP 98.5
--- NOTE | 2019-09-28 21:51 | NUR ---
Resting in bed. Assessment complete. Lungs clear. Heart sounds normal. Bowels active x4. Pulses present. Edema to left upper hand/forearm present. Reports pain 5/10- norco due to 2330. Right lower extremity dressing CDI. PICC to right upper without complications. Provided with snack. Blood sugar 236. Given scheduled insulin. Denies other needs at this time. Call light in reach.
--- NOTE | 2019-09-28 23:46 | NUR ---
Patient reports 7/10 left arm and leg pain. Provided with PRN norco at this time.
[2019-09-29] VITALS (7 sets, daily range): BP systolic 140–176; BP diastolic 80–99; PULSE 78–87; TEMP 97.7–99.1
--- NOTE | 2019-09-29 04:28 | NUR ---
Reports 11/26 left arm and leg pain. Provided with PRN oxycodone. Denies other needs at this time.
--- NOTE | 2019-09-29 06:35 | NUR ---
Patient required PRN norco and oxycodone throughout night for pain control. Otherwise uneventful night. Resting in bed this AM. Call light in reach.
[2019-09-29 07:12] LABS: ALBUMIN 3.6 gm/dL (3.5-5.0); BILIRUBIN,TOTAL 0.4 mg/dL (0.0-1.0); CALCIUM 9.1 mg/dL (8.4-10.2); CREATININE, serum 1.75 (0.66-1.25); TOTAL PROTEIN 7.3 gm/dL (6.4-8.2)
[2019-09-29 07:23] LABS: INR 2.4 (0.8-3.0); PROTHROMBIN TIME 26.6 SECONDS (9.7-12.8)
[2019-09-29 07:40] LABS: HEMATOCRIT 48.7 % (42.0-52.0); HEMOGLOBIN 15.3 g/dl (13.5-18.0); MEAN CELL VOLUME 94 fl (80.0-100.0); MEAN CORPUSCULAR HEMOGLOBIN 29 pg (27.0-31.0); MEAN CORPUSCULAR HGB CONC 31 g/dl (33.0-37.0); MEAN PLATELET VOLUME 11.2 fl (7.4-10.4); PLATELET COUNT 297 K/mm3 (130-400); REDCELL DISTRIBUTION WIDTH-CV 14.5 % (11.5-14.5)
--- NOTE | 2019-09-29 07:44 | NUR ---
Report given to JASMIN Aleman
[2019-09-29 08:34] LABS: BAND 1 % (0-10); EOSINOPHIL 1 % (0-4); LYMPHOCYTE 21 % (20.0-51.0); METAMYELOCYTE 16 % (0-0); NEUTROPHILS 58 % (42.0-75.2); PLATELET ESTIMATE NORMAL (NORMAL)
--- NOTE | 2019-09-29 08:45 | NUR ---
PT IN BED, COMPLAINING OF PAIN 7/10 IN SWOLLEN L HAND. PT IN BED, BED IN LOW POSITION, 330ML IN URINAL. PT WANTS TO GO HOME. BS 229 THIS MORNING. NO OTHER NEEDS AT THIS TIME. REFUSED MIRALAX DUE TO BM TODAY.
--- NOTE | 2019-09-29 15:04 | NUR ---
PT HAS BEEN REFUSING TO USE INCENTIVE SPIROMETER
--- NOTE | 2019-09-29 16:18 | NUR ---
[place] Urologist attended clinical rounds with the team and patient states he does not feel he can manage at home at this point. PT, Tarik advised patient would require post acute rehab. MONIQUE contacted IPR Director Elizabeth, to put in screen. Elizabeth advised they are not able to accept patient. MONIQUE faxed referrals to [facility], [facility], and [facility]. MONIQUE spoke with Flavia at [facility] who advised they can accept clinically but would need authorization from patient's payer source, [employer]. MONIQUE contacted Gill at [facility] (ph#[phone] ext [phone]) who advised [facility] Form #[id number] would need to be completed to request authorization for post acute rehab. MONIQUE printed form and had Hospitalist review and sign. MONIQUE faxed form with clinical information to fax #[phone]. MONIQUE provided update to patient and will continue to follow.
--- NOTE | 2019-09-29 18:13 | NUR ---
PT IN BED, COMPLAINING OF PHANTOM TOE PAIN WHERE RIGHT BIG TOE USED TO BE. NORCO GIVEN FOR THIS. INTAKE AND OUTPUT DOCUMENTED. PT WILL DISCHARGE TO FACILITY TOMORROW. PT HAPPY WITH THIS DECISION. BED IN LOW POSITION, UTILIZES URINAL FOR I/O. NO OTHER NEEDS AT THIS TIME. UNEVENTFUL SHIFT. BLOOD SUGARS IN 200'S ALL DAY.
--- NOTE | 2019-09-29 18:55 | NUR ---
REPORT GIVEN TO SPENCER CASTELLANOS
--- NOTE | 2019-09-29 20:00 | NUR ---
At time of assessment, patient is in bed watching TV. He is alert and oriented and is at a tolerable pain level at this time. His lungs are clear/diminished, heart sounds normal/regular. No edema is present. His bilat lower legs do have a danitza discoloration. His right foot and ankle is wrapped in an coleen bandage around a dressing that is CDI after R great toe amputation. No new concerns at this time. Will continue to monitor.
[2019-09-30 03:59] VITALS: BP 155/80; PULSE 83; TEMP 99
--- NOTE | 2019-09-30 05:14 | NUR ---
Patient has had a restful night. He requested pain medication once for pain in his left hand/wrist. PICC line caps changed at 0515. No new concerns. Will continue to monitor.
[2019-09-30 07:19] LABS: HEMATOCRIT 47.7 % (42.0-52.0); HEMOGLOBIN 15.8 g/dl (13.5-18.0); MEAN CELL VOLUME 92 fl (80.0-100.0); MEAN CORPUSCULAR HEMOGLOBIN 31 pg (27.0-31.0); MEAN CORPUSCULAR HGB CONC 33 g/dl (33.0-37.0); MEAN PLATELET VOLUME 10.6 fl (7.4-10.4); PLATELET COUNT 298 K/mm3 (130-400); RED BLOOD COUNT 5.17 M/mm3 (4.20-5.60); REDCELL DISTRIBUTION WIDTH-CV 14.8 % (11.5-14.5)
[2019-09-30] MEDS ORDERED: TYLENOL 325MG325 MG PO (07:20)
[2019-09-30] MEDS ORDERED: ROXICODONE 55 MG/TAB PO (07:20)
[2019-09-30] MEDS ORDERED: SENEXON-S 50-81 EACH PO (07:21)
[2019-09-30] MEDS ORDERED: MIRALAX PA17 GM/Dose PO (07:21)
[2019-09-30] MEDS ORDERED: DULCOLAX S10 MG/SUPP RC (07:21)
[2019-09-30] MEDS ORDERED: GOOD NEIGH1200 MG/15 PO (07:21)
[2019-09-30] MEDS ORDERED: SALONPAS1 EACH TP (07:22)
[2019-09-30 07:25] VITALS: BP 136/93; PULSE 96; TEMP 99.2
[2019-09-30 07:30] LABS: CALCIUM 9.2 mg/dL (8.4-10.2); CREATININE, serum 0.85 (0.66-1.25); POTASSIUM 3.9 mmol/L (3.4-5.0)
[2019-09-30 07:39] LABS: INR 2.7 (0.8-3.0); PROTHROMBIN TIME 30.5 SECONDS (9.7-12.8)
[2019-09-30] MEDS ORDERED: NOVOLOG FLEX100 U/ML SQ (08:55)
[2019-09-30] MEDS ORDERED: NICORETTE GUM2 MG BC (08:58)
[2019-09-30] MEDS ORDERED: NICODERM C21 MG/PATC TD (08:59)
--- NOTE | 2019-09-30 09:17 | NUR ---
Hog Ringer spoke with the [facility] who advised part of yesterday's fax was missing as it came through their paper fax. SW resent fax to #[phone], which is the electronic fax. SW to continue to follow.
[2019-09-30 09:56] LABS: BAND 16 % (0-10); LYMPHOCYTE 16 % (20.0-51.0); METAMYELOCYTE 7 % (0-0); NEUTROPHILS 55 % (42.0-75.2); PLATELET ESTIMATE NORMAL (NORMAL)
--- NOTE | 2019-09-30 10:30 | NUR ---
PICC intact right upper arm with sterile dressing change done with insertion site cleansed with chloraprep x 1, chlorhexidine impregnated disk applied, skin prep, stat lock, and tegaderm applied. no signs or symptoms of IV complications noted. no concerns voiced. both ports flushed with 10ml normal saline with good blood return noted. re-wrapped with coleen to protect catheter.
[2019-09-30 11:17] VITALS: BP 156/76; PULSE 88; TEMP 99.1
[2019-09-30 15:14] VITALS: BP 151/82; PULSE 91; TEMP 98.8
--- NOTE | 2019-09-30 17:05 | NUR ---
Production Tester collaborated with RNToi from the [place] about authorization for discharge to [facility]. Toi requested request form be re-filled out by Hospitalist with additional information about diagnosis and reason for request. MONIQUE collaborated with Hospitalist to re-do forms and resubmitted them. MONIQUE spoke with Lakisha CASTELLANOS at [facility] who advised they are able to accept patient pending dr awa garcia call with weekend provider, Dr Parker. MONIQUE was advised Dr. Parker could be reached by contacting the nurses station at [phone]. MONIQUE provided patient update that [facility] can accept, however waiting on authorization from the [place]. Patient states he is unsure if his mom will give him a ride or not. MONIQUE contacted patient's mother, Roshni (ph#[phone]) who advised she would be able to give patient a ride to [facility] upon discharge. MONIQUE was contacted by the [place] at the end of the day and was notified they were not able to obtain authorization before the end of the day meaning patient will not have authorization over the weekend. MONIQUE provided update to [facility], patient's mother Roshni, and JOHN Pryor.
--- NOTE | 2019-09-30 20:00 | NUR ---
At time of assessment, patient is sitting in bed watching TV. He is alert and oriented with a pain level of 7/10 in his legs and left wrist. [place] administered for this. His heart sounds are normal and lungs are clear. 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 Dressing is CDI and neuro checks on foot are normal. He complains of irritation on his back. It appears broken out with acne; his back is washed at this time. No new concerns. Will continue to monitor.
[2019-09-30 20:05] VITALS: BP 152/86; PULSE 90; TEMP 98.2
[2019-09-30 23:40] VITALS: BP 148/83; PULSE 91; TEMP 98.2
[2019-10-01 03:42] VITALS: BP 139/78; PULSE 87; TEMP 98.4
[2019-10-01 07:26] VITALS: BP 149/76; PULSE 86; TEMP 99.1
[2019-10-01 07:52] LABS: CALCIUM 9.4 mg/dL (8.4-10.2); CREATININE, serum 0.83 (0.66-1.25); POTASSIUM 4.6 mmol/L (3.4-5.0)
[2019-10-01 07:55] LABS: HEMATOCRIT 49.6 % (42.0-52.0); HEMOGLOBIN 15.7 g/dl (13.5-18.0); MEAN CELL VOLUME 94 fl (80.0-100.0); MEAN CORPUSCULAR HEMOGLOBIN 30 pg (27.0-31.0); MEAN CORPUSCULAR HGB CONC 32 g/dl (33.0-37.0); MEAN PLATELET VOLUME 11.2 fl (7.4-10.4); PLATELET COUNT 275 K/mm3 (130-400); RED BLOOD COUNT 5.29 M/mm3 (4.20-5.60); REDCELL DISTRIBUTION WIDTH-CV 14.7 % (11.5-14.5)
[2019-10-01 09:12] LABS: INR 2.4 (0.8-3.0); PROTHROMBIN TIME 27.2 SECONDS (9.7-12.8)
[2019-10-01 09:46] LABS: BAND 18 % (0-10); EOSINOPHIL 1 % (0-4); LYMPHOCYTE 5 % (20.0-51.0); METAMYELOCYTE 8 % (0-0); NEUTROPHILS 58 % (42.0-75.2); PLATELET ESTIMATE NORMAL (NORMAL)
[2019-10-01 12:15] VITALS: BP 146/82; PULSE 96; TEMP 98.7
[2019-10-01 16:01] VITALS: BP 130/63; PULSE 89; TEMP 98.7
[2019-10-01 20:04] VITALS: BP 140/75; PULSE 91; TEMP 98.8
[2019-10-01 23:22] VITALS: BP 142/76; PULSE 91; TEMP 98.1
--- NOTE | 2019-10-02 02:47 | NUR ---
PT CALLING EVERY APPROX. 2-3 HOURS FOR PAIN MEDICATION. NO N/V. CASTED SPLINT TO RLE CD&I.
[2019-10-02 03:21] VITALS: BP 132/76; PULSE 92; TEMP 98.7
--- NOTE | 2019-10-02 04:18 | NUR ---
PT c/o WHAT HE THOUGHT WAS GAS PAIN ON HIS LEFT FLANK/LEFT UPPER ABDOMEN. HE SAID HE'S HAD IT BEFORE. WARM PACK MADE FOR APPLICATION TO AREA. PT HAD JUST HAD P.O. PAIN MEDS. HE STATED HE HAD A BOWEL MOVEMENT YESTERDAY.
[2019-10-02 07:30] VITALS: BP 126/79; PULSE 87; TEMP 98.1
[2019-10-02 08:12] LABS: C-REACTIVE PROTEIN 7.3 mg/dL (0.0-0.9); CALCIUM 9.1 mg/dL (8.4-10.2); CREATININE, serum 1.3 (0.66-1.25); MAGNESIUM 2.1 mg/dL (1.6-2.3); POTASSIUM 4.8 mmol/L (3.4-5.0)
[2019-10-02 08:16] LABS: HEMATOCRIT 50.1 % (42.0-52.0); HEMOGLOBIN 15.8 g/dl (13.5-18.0); MEAN CELL VOLUME 94 fl (80.0-100.0); MEAN CORPUSCULAR HEMOGLOBIN 30 pg (27.0-31.0); MEAN CORPUSCULAR HGB CONC 32 g/dl (33.0-37.0); MEAN PLATELET VOLUME 11.2 fl (7.4-10.4); PLATELET COUNT 292 K/mm3 (130-400); RED BLOOD COUNT 5.36 M/mm3 (4.20-5.60)
[2019-10-02 09:39] LABS: PROTHROMBIN TIME 22.8 SECONDS (9.7-12.8)
[2019-10-02 10:06] LABS: BAND 8 % (0-10); EOSINOPHIL 2 % (0-4); LYMPHOCYTE 14 % (20.0-51.0); METAMYELOCYTE 2 % (0-0); MYELOCYTE 10 % (0-0); NEUTROPHILS 56 % (42.0-75.2)
[2019-10-02 10:07] LABS: PLATELET ESTIMATE NORMAL (NORMAL)
[2019-10-02 10:11] LABS: ANISOCYTOSIS 1+; HYPOCHROMIA 1+
[2019-10-02 12:00] VITALS: BP 136/78; PULSE 84; TEMP 98.5
--- NOTE | 2019-10-02 14:25 | NUR ---
Warfarin Follow-up Pharmacy Note Current regimen: Warfarin 7 mg po qHS LABS: INR 2 Changes in therapy: Increase Warfarin to 8 mg po qHS. Pharmacy will continue to monitor daily INR levels.
--- NOTE | 2019-10-02 15:31 | NUR ---
PT DISCHARGED TO HOME [facility] ACCOMPANIED BY @ 1500. NO NEW CONCERNS. DENIES PAIN, CP, N/V, PALPITATIONS. DISCHARGE INSTRUCTIONS GIVEN. REDUCED REDNESS AND TENDERNESS TO MID ABD HEMANGIOMA SITE.
[2019-10-02 15:38] VITALS: BP 132/79; PULSE 90; TEMP 98.4
[2019-10-02 19:27] VITALS: BP 144/79; PULSE 96; TEMP 99.3
--- NOTE | 2019-10-02 20:26 | NUR ---
Resting in bed. Assessment complete. Lungs clear. Heart sounds normal. Bowels active x4. Pulses present. Left lower extremity +1 edema with dark purplish discoloration. PICC to right upper flushed without complications. Reports 7/10 right foot pain. Provided with PRN percocet at this time. Denies other needs. Call light in reach. Will monitor.
[2019-10-02 23:55] VITALS: BP 118/63; PULSE 85; TEMP 98.8
--- NOTE | 2019-10-03 00:34 | NUR ---
Reports 7/10 pain in left leg and left hand. Provided with PRN norco. Denies other needs at this time. Call light in reach.
--- NOTE | 2019-10-03 02:12 | NUR ---
Resting in bed. Denies needs. Call light in reach.
[2019-10-03 03:30] VITALS: BP 142/94; PULSE 83; TEMP 98.9
--- NOTE | 2019-10-03 03:47 | NUR ---
Reports 6/10 right foot pain. Provided with PRN oxycodone at this time. Denies other needs. Call light in reach.
[2019-10-03 06:19] LABS: HEMATOCRIT 47.9 % (42.0-52.0); HEMOGLOBIN 15.1 g/dl (13.5-18.0); MEAN CELL VOLUME 94 fl (80.0-100.0); MEAN CORPUSCULAR HEMOGLOBIN 30 pg (27.0-31.0); MEAN CORPUSCULAR HGB CONC 32 g/dl (33.0-37.0); MEAN PLATELET VOLUME 11.4 fl (7.4-10.4); PLATELET COUNT 195 K/mm3 (130-400); RED BLOOD COUNT 5.11 M/mm3 (4.20-5.60); REDCELL DISTRIBUTION WIDTH-CV 14.8 % (11.5-14.5)
--- NOTE | 2019-10-03 06:24 | NUR ---
Patient up to restroom and returned to bed x1 assist with walker. Required oxycodone and norco alternating for pain control in left arm, left leg, and right foot throughout night. Otherwise uneventful night. Resting in bed this AM. Call light in reach.
[2019-10-03 06:28] LABS: INR 1.8 (0.8-3.0); PROTHROMBIN TIME 20.4 SECONDS (9.7-12.8)
[2019-10-03 06:35] LABS: CREATININE, serum 1.41 (0.66-1.25); POTASSIUM 5.2 mmol/L (3.4-5.0)
[2019-10-03 07:03] LABS: BAND 7 % (0-10); LYMPHOCYTE 9 % (20.0-51.0); METAMYELOCYTE 2 % (0-0); MYELOCYTE 6 % (0-0); NEUTROPHILS 69 % (42.0-75.2)
--- NOTE | 2019-10-03 07:07 | NUR ---
Report given to JASMIN Barry. Patient resting in bed. Denied needs.
[2019-10-03 07:40] VITALS: BP 145/78; PULSE 90; TEMP 98.2
[2019-10-03 11:58] VITALS: BP 130/81; PULSE 81; TEMP 98.4
--- NOTE | 2019-10-03 13:43 | NUR ---
Warfarin Follow-up Pharmacy Note Current regimen: 8mg QHS LABS: INR 1.8 Changes in therapy: Increase dose to 9 mg QHS. Will continue to follow.
[2019-10-03 16:38] VITALS: BP 136/78; PULSE 84; TEMP 98.1
[2019-10-03 20:42] VITALS: BP 124/77; PULSE 86; TEMP 98.4
--- NOTE | 2019-10-03 20:50 | NUR ---
Patient resting in bed. Assessment complete. Lungs clear. Heart sounds normal. Bowels active x4. Pulses present. No edema noted at this time. Right foot dressing CDI. Left lower extremity dark discoloration present. PICC to right upper without complications. IVF infusing as ordered. Reports 6/10 pain in right foot. Provided with PRN oxycodone at this time. Denies other needs. Call light in reach.
[2019-10-03 23:48] VITALS: BP 133/81; PULSE 78; TEMP 98.1
--- NOTE | 2019-10-03 23:51 | NUR ---
Reports 7/10 bilateral foot pain. Provided with ESTELLE fitch at patient request. Denies other needs at this time. Call light in reach.
--- NOTE | 2019-10-04 01:49 | NUR ---
Resting in bed asleep. Call light in reach.
[2019-10-04 02:59] VITALS: BP 133/80; PULSE 80; TEMP 98.2
--- NOTE | 2019-10-04 03:02 | NUR ---
Reports 7/10 bilateral foot pain. Provided with PRN oxycodone at patient request. Denies other needs. Call light in reach.
[2019-10-04 06:15] LABS: HEMATOCRIT 49.2 % (42.0-52.0); HEMOGLOBIN 15.7 g/dl (13.5-18.0); MEAN CELL VOLUME 93 fl (80.0-100.0); MEAN CORPUSCULAR HEMOGLOBIN 30 pg (27.0-31.0); MEAN CORPUSCULAR HGB CONC 32 g/dl (33.0-37.0); MEAN PLATELET VOLUME 11.1 fl (7.4-10.4); PLATELET COUNT 252 K/mm3 (130-400); RED BLOOD COUNT 5.29 M/mm3 (4.20-5.60)
[2019-10-04 06:23] LABS: CALCIUM 9.4 mg/dL (8.4-10.2); CREATININE, serum 1.18 (0.66-1.25); POTASSIUM 5.1 mmol/L (3.4-5.0)
--- NOTE | 2019-10-04 06:28 | NUR ---
Patient required oxycodone and norco alternating throughout night for pain control. Walked to restroom this AM for bowel movement-x1 assist gait belt and walker. Linens changed and bath given. Denied other needs this AM. Call light in reach.
[2019-10-04 06:35] LABS: INR 1.6 (0.8-3.0); PROTHROMBIN TIME 18.1 SECONDS (9.7-12.8)
[2019-10-04 07:05] VITALS: BP 129/80; PULSE 68; TEMP 98.2
[2019-10-04 07:33] LABS: BAND 6 % (0-10); EOSINOPHIL 6 % (0-4); LYMPHOCYTE 15 % (20.0-51.0); METAMYELOCYTE 4 % (0-0); MYELOCYTE 4 % (0-0); NEUTROPHILS 58 % (42.0-75.2); PLATELET ESTIMATE NORMAL (NORMAL)
--- NOTE | 2019-10-04 07:41 | NUR ---
Report given to JASMIN Banuelos
[2019-10-04 08:44] LABS: PATHOLOGY DIFF REVIEW OK +
--- NOTE | 2019-10-04 08:56 | NUR ---
Assessment complete. Pt using urinal upon entry. States he was uncomfortable through the night but feels fine other than his pain. PICC site is CD&I, belinda a small amount of blood while flushing. He had no other complaints at this time. States that needs are met. Call light in reach.
--- NOTE | 2019-10-04 09:20 | NUR ---
Warfarin Follow-up Pharmacy Note Current regimen: WARFARIN 9 MG QHS LABS: INR 1.6 Changes in therapy: INCREASE TO WARFARIN 10 MG QHS. WATCH INR CLOSELY. DAILY INR
[2019-10-04 11:48] VITALS: BP 151/91; PULSE 96; TEMP 98.2
--- NOTE | 2019-10-04 12:01 | NUR ---
MONIQUE contacted JASMIN Cm at the [place], to follow up on if they had received authorization for the patient to go to [facility]. Toi reports that their physician submitted the consult this morning at 0500. She states that they are still working on authorization, but that they would approve for the patient to transfer to [facility] today. MONIQUE contacted and Promise at [facility] and informed her of the above information. MONIQUE also provided her with [facility]'s contact information. Promise reports that she will contact [facility] and let MONIQUE know, if they would be able to accept the patient today or would need an official authorization. MONIQUE met with the patient and updated him. MONIQUE contacted and updated the patient's mother, Roshni (ph#[phone]), on a possible discharge today. Roshni reports that they would be able to provide transport for him, if [facility] is able to accept him. SW to continue to follow.
--- NOTE | 2019-10-04 15:58 | NUR ---
Promise, at [facility], reports [facility]. Tiffanie Rose is the accepting provider. MONIQUE notified the clinical team. SW updated the patient and the patient's mother, Roshni. Roshni reports that she will contact her for him to provide transport. The patient is to discharge today, 10/03, to [facility]. Transportation to be by private vehicle, via the patient's father. No additional needs at this time.
[2019-10-04] MEDS ORDERED: AMOXICILLIN 8751 TAB PO (16:06)
[2019-10-04] MEDS ORDERED: ZESTRIL 20MG TA20 MG PO (16:07)
[2019-10-04] MEDS ORDERED: NOVOLOG 100U100 U/M1 SQ (16:07)
--- NOTE | 2019-10-04 17:56 | NUR ---
Pt left the floor at this time. Discharge instructions were given. Pt aware of POC at [facility] bed.
== END 2019-10-04 17:58 | disposition swing bed (61) | DRG 853 ==
LOC: MEDICAL 13:37
PROVIDERS: Nurse Practitioner Family; Orthopaedic Surgery; Physician Assistant; Student in an Organized Health Care Education/Training Program; ADMIT Internal Medicine
PROC: 0Y6M0Z9 Detachment at Right Foot, Partial 1st Ray, Open Approach (ICD-10-PCS; principal; 2019-09-23 20:15)
DX: A41.9 Sepsis, unspecified organism (principal); A48.0 Gas gangrene; N17.9 Acute kidney failure, unspecified; D68.51 Activated protein C resistance; E87.1 Hypo-osmolality and hyponatremia; E11.52 Type 2 diabetes mellitus with diabetic peripheral angiopathy with gangrene; I70.269 Atherosclerosis of native arteries of extremities with gangrene, unspecified extremity; L03.031 Cellulitis of right toe; Z20.818 Contact with and (suspected) exposure to other bacterial communicable diseases; Z86.718 Personal history of other venous thrombosis and embolism; Z79.01 Long term (current) use of anticoagulants; E87.5 Hyperkalemia; R60.0 Localized edema; E11.65 Type 2 diabetes mellitus with hyperglycemia; Z79.4 Long term (current) use of insulin; J44.9 Chronic obstructive pulmonary disease, unspecified; F17.200 Nicotine dependence, unspecified, uncomplicated; E66.01 Morbid (severe) obesity due to excess calories; R94.5 Abnormal results of liver function studies; I10 Essential (primary) hypertension; G89.29 Other chronic pain; K21.9 Gastro-esophageal reflux disease without esophagitis; K59.00 Constipation, unspecified; R09.02 Hypoxemia; M13.822 Other specified arthritis, left elbow; M13.872 Other specified arthritis, left ankle and foot; M13.842 Other specified arthritis, left hand; E11.40 Type 2 diabetes mellitus with diabetic neuropathy, unspecified
CPT/HCPCS: 99223-AI; 99232-AI; 99233-AI; 99239; A9284; C1751; J0690; J1170; J1644; J1650; J1815; J2270; J2543; J2704; J3370; J7030; J7040; J7512

== ENCOUNTER → 2019-09-27 | Outpatient (CLI) | payer OTHER ==
[~2019-09-27] MED LIST changes: +AMOXICILLIN 8751 TAB PO; +BACTRIM DS 8001 TAB PO; +DEMADEX 20MG20 M1 PO; +DIAPERRASHOINT TOP; +DULCOLAX S10 MG/SUPP RC; +GLUCOPHAGE1000 MG PO; +GOOD NEIGH1200 MG/15 PO; +LEVEMIR100 U/ML SQ; +LOVENOX150 MG/ML SQ; +MIRALAX PA17 GM/Dose PO; +NEURONTIN300 MG/CAP PO; +NICODERM C21 MG/PATC TD; +NICORETTE GUM2 MG BC; +NORCO 325 MG-101 TAB PO; +NOVOLOG 100U100 U/M1 SQ; +NOVOLOG FLEX100 U/ML SQ; +NOVOLOGMIX70/30 SQ; +OMNICEF 300MG300 MG PO; +PROTONIX 40MG T40 MG PO; +ROXICODONE 55 MG/TAB PO; +SALONPAS1 EACH TP; +SENEXON-S 50-81 EACH PO; +TYLENOL 325MG325 MG PO; +VANCO 1.51.5 GM/250 IV; +ZESTRIL 20MG TA20 MG PO; +ZESTRIL2.5 MG PO; +ZESTRIL40 MG PO
== END ==
LOC: BHSO 11:00
DX: F63.81 Intermittent explosive disorder (principal)

== ENCOUNTER → 2019-10-11 | Outpatient (CLI) | payer OTHER | LOC: BHSO 11:00 | DX: F63.81 Intermittent explosive disorder (principal) ==

== ENCOUNTER 2019-10-18 10:14 | Day surgery (SDC) | payer OTHER ==
[~2019-10-18] VITALS: Ht 172.7 cm; Wt 123.7 kg
[~2019-10-18 10:14] MED LIST changes: -DIAPERRASHOINT TOP; -LOVENOX150 MG/ML SQ; -NEURONTIN300 MG/CAP PO; -PROTONIX 40MG T40 MG PO; -VANCO 1.51.5 GM/250 IV; -ZESTRIL2.5 MG PO
[2019-10-18] MEDS ORDERED: VANCO 1.51.5 GM/250 IV (11:13)
[2019-10-18] MEDS ORDERED: DIAPERRASHOINT TOP (11:15)
[2019-10-18] MEDS ORDERED: NEURONTIN300 MG/CAP PO (11:16)
[2019-10-18] MEDS ORDERED: LOVENOX150 MG/ML SQ (11:17)
[2019-10-18] MEDS ORDERED: ZESTRIL2.5 MG PO (11:19)
[2019-10-18] MEDS ORDERED: NOVOLOG 100U100 U/M1 SQ (11:21)
[2019-10-18] MEDS ORDERED: PROTONIX 40MG T40 MG PO (11:23)
[2019-10-18 11:34] VITALS: BP 139/72; PULSE 94; TEMP 99.5
[2019-10-18 17:30] VITALS: BP 94/71; PULSE 92; TEMP 98.2
--- NOTE | 2019-10-18 17:30 | NUR ---
TO RM 6 PER CART FROM PACU. ALERT ORIENTED X3 TALKING TO STAFF AND MOTHER. OPERATIVE FOOT ELEVATED AND ICED ORDERED 02 SAT 88% OFF O2 AND 97% ON 3L. RECEIVED SOUP AND WATER.
[2019-10-18 17:45] VITALS: BP 122/79; PULSE 90
--- NOTE | 2019-10-18 17:45 | NUR ---
ATE 100% AND TOLERATED WELL
[2019-10-18 18:00] VITALS: BP 124/73; PULSE 91
--- NOTE | 2019-10-18 18:00 | NUR ---
UPON RETURNING TO PATIENT COUGHING A LARGE AMOUNT OF YELLOWISH PHELGM. REPORT CALLED TO [facility].
--- NOTE | 2019-10-18 18:20 | NUR ---
PATIENT AND MOTHER RECEIVED DISCHARGE INSTRUCTIONS UPON THE TIME OF DISCHARGE- ORDER TO EVACUATE. FLUSHED PICC SENT MOTHER TO GET CAR 2 NURSES ASSISTED PAITENT DRESSED AND INTO WC.
--- NOTE | 2019-10-18 18:40 | NUR ---
DISCHARGED PER BY NURSING STAFF TO PRIVATE CAR IN CARE OF HIS MOTHER. MOTHER TAKING PATIENT BACK TO [facility] FOR HIS CARES.
[2019-10-18 20:48] VITALS: BP 94/41; PULSE 98; TEMP 98.4
== END 2019-10-18 18:57 | disposition swing bed (61) ==
LOC: SDCO 10:14
DX: T87.89 Other complications of amputation stump (principal); E11.22 Type 2 diabetes mellitus with diabetic chronic kidney disease; I12.9 Hypertensive chronic kidney disease with stage 1 through stage 4 chronic kidney disease, or unspecified chronic kidney disease; E11.52 Type 2 diabetes mellitus with diabetic peripheral angiopathy with gangrene; I96 Gangrene, not elsewhere classified; E11.40 Type 2 diabetes mellitus with diabetic neuropathy, unspecified; N18.9 Chronic kidney disease, unspecified; K21.9 Gastro-esophageal reflux disease without esophagitis; J44.9 Chronic obstructive pulmonary disease, unspecified; D68.51 Activated protein C resistance; G89.29 Other chronic pain; F17.210 Nicotine dependence, cigarettes, uncomplicated; E66.01 Morbid (severe) obesity due to excess calories; Z68.41 Body mass index [BMI] 40.0-44.9, adult; Z79.899 Other long term (current) drug therapy; Z89.411 Acquired absence of right great toe; Z79.4 Long term (current) use of insulin; Z79.01 Long term (current) use of anticoagulants
CPT/HCPCS: C1751; J0690; J1100; J1885; J2250; J2405; J2704; J3010; J7030

== ENCOUNTER → 2019-11-15 | Outpatient (CLI) | payer OTHER ==
[~2019-11-15] MED LIST changes: +DIAPERRASHOINT TOP; +LOVENOX150 MG/ML SQ; +NEURONTIN300 MG/CAP PO; +PROTONIX 40MG T40 MG PO; +VANCO 1.51.5 GM/250 IV; +ZESTRIL2.5 MG PO
== END ==
LOC: BHSO 10:51
DX: F63.81 Intermittent explosive disorder (principal)

== ENCOUNTER → 2019-11-22 | Outpatient (CLI) | payer OTHER | LOC: BHSO 10:57 | DX: F63.81 Intermittent explosive disorder (principal) ==

== ENCOUNTER → 2019-11-29 | Outpatient (CLI) | payer OTHER | LOC: BHSO 10:43 | DX: F63.81 Intermittent explosive disorder (principal) ==

== ENCOUNTER → 2019-12-06 | Outpatient (CLI) | payer OTHER | LOC: BHSO 10:57 | DX: F63.81 Intermittent explosive disorder (principal) ==

== ENCOUNTER → 2019-12-13 | Outpatient (CLI) | payer OTHER | LOC: BHSO 11:02 | DX: F63.81 Intermittent explosive disorder (principal) ==

== ENCOUNTER → 2019-12-20 | Outpatient (CLI) | payer OTHER | LOC: BHSO 11:01 | DX: F63.81 Intermittent explosive disorder (principal) ==

== ENCOUNTER → 2019-12-27 | Outpatient (CLI) | payer OTHER | LOC: BHSO 11:05 | DX: F63.81 Intermittent explosive disorder (principal) ==

== ENCOUNTER → 2020-01-03 | Outpatient (CLI) | payer OTHER | LOC: BHSO 10:56 | DX: F63.81 Intermittent explosive disorder (principal) ==

== ENCOUNTER → 2020-01-10 | Outpatient (CLI) | payer OTHER | LOC: BHSO 10:53 | DX: F63.81 Intermittent explosive disorder (principal) ==

== ENCOUNTER → 2020-01-17 | Outpatient (CLI) | payer OTHER | LOC: BHSO 10:55 | DX: F63.81 Intermittent explosive disorder (principal) ==

== ENCOUNTER → 2020-01-24 | Outpatient (CLI) | payer OTHER | LOC: BHSO 10:52 | DX: F63.81 Intermittent explosive disorder (principal) ==

== ENCOUNTER → 2020-01-31 | Outpatient (CLI) | payer OTHER | LOC: BHSO 10:47 | DX: F63.81 Intermittent explosive disorder (principal) ==

== ENCOUNTER → 2020-02-07 | Outpatient (CLI) | payer OTHER | LOC: BHSO 11:04 | DX: F63.81 Intermittent explosive disorder (principal) ==

== ENCOUNTER → 2020-02-21 | Outpatient (CLI) | payer OTHER | LOC: BHSO 10:56 | DX: F63.81 Intermittent explosive disorder (principal) ==

== ENCOUNTER → 2020-02-28 | Outpatient (CLI) | payer OTHER | LOC: BHSO 10:59 | DX: F63.81 Intermittent explosive disorder (principal) ==

== ENCOUNTER → 2020-03-13 | Outpatient (CLI) | payer OTHER | LOC: BHSO 11:09 | DX: F63.81 Intermittent explosive disorder (principal) ==

== ENCOUNTER → 2020-03-20 | Outpatient (CLI) | payer OTHER | LOC: BHSO 11:11 | DX: F63.81 Intermittent explosive disorder (principal) ==